=== PATIENT | female | born 1950 | race African-American/Black ===

== ENCOUNTER 2017-04-24 16:58 | Emergency (ER) | payer OTHER, MEDICAID ==
[~2017-04-24] VITALS: Ht 165.1 cm; Wt 60.8 kg
[~2017-04-24 16:58] MED LIST: GLIPIZIDE5 MG; LEVOTHYROXIN0.075 M2; METFORMIN HCL1000 MG PO
[2017-04-24 17:47] LABS: BASOPHIL % 0.4 % (0-2); PLATELET COUNT 219 x10^3mcL (130-400)
[2017-04-24 18:26] LABS: CALCIUM 9.3 mg/dL (8.5-10.1); CARBON DIOXIDE 24.6 mmol/L (21-32); CREATININE SERUM 1.1 mg/dL (0.6-1.0)
[2017-04-24 19:53] VITALS: BP 151/87
== END 2017-04-24 19:53 | disposition home or self-care (01) ==
LOC: ED 16:58
PROVIDERS: Emergency Medicine
DX: S50.02XA Contusion of left elbow, initial encounter (principal); S20.212A Contusion of left front wall of thorax, initial encounter; S09.93XA Unspecified injury of face, initial encounter; E11.9 Type 2 diabetes mellitus without complications; E03.9 Hypothyroidism, unspecified; Z88.6 Allergy status to analgesic agent; W10.8XXA Fall (on) (from) other stairs and steps, initial encounter; Y93.89 Activity, other specified; Y92.89 Other specified places as the place of occurrence of the external cause; Y99.8 Other external cause status
CPT/HCPCS: 36415; 90715